=== PATIENT | female | born 1965 | race Caucasian/White ===

== ENCOUNTER 2018-10-25 14:46 | Emergency (ER) | payer OTHER ==
[~2018-10-25] VITALS: Ht 170.2 cm; Wt 81.6 kg
[~2018-10-25 14:46] MED LIST: ACET650T79 OR; CLON0.5T OR; FERRDRO3 OR; PRO20T GT
[2018-10-25 15:00] VITALS: BP 174/105
== END 2018-10-25 15:45 | disposition left against medical advice (07) ==
LOC: EDBD 14:46 → EDUNIT# 14:46 → ER 14:49
DX: N93.9 Abnormal uterine and vaginal bleeding, unspecified (principal); Z53.21 Procedure and treatment not carried out due to patient leaving prior to being seen by health care provider